=== PATIENT | male | born 1980 | race Two or more races ===

== ENCOUNTER 2019-02-18 13:50 | Emergency (ER) | payer MEDICAID ==
[~2019-02-18] VITALS: Ht 175.3 cm; Wt 88.5 kg
[2019-02-18] MEDS ORDERED: TRUVADA 200 MG1 EAC1 ORAL (13:59)
[2019-02-18] MEDS ORDERED: NKM (13:59)
[2019-02-18 14:12] VITALS: BP 133/68
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
[2019-02-18] MEDS ORDERED: Morphine Sulfate 2mg/ml Inj(IV/IM USE ONLY) IM ONE (14:15)
--- NOTE | 2019-02-18 14:44 | NUR ---
ED Nurse Note:pt. has abrasion on right wrist and multiple bruising on legs
--- NOTE | 2019-02-18 15:09 | NUR ---
ED Nurse Note:pt. had x-rays done
[2019-02-18] MEDS ORDERED: NORCO 5-325 TA1 EACH ORAL (15:14)
[2019-02-18] MEDS ORDERED: IBUPROFEN600 MG ORAL (15:14)
--- NOTE | 2019-02-18 15:36 | Diagnostic Imaging Report ---
EXAM: XR Right Knee, 3 views CLINICAL HISTORY: INJ TECHNIQUE: Three views of the right knee. COMPARISON: No relevant prior studies available. FINDINGS: Bones/joints: No acute fracture. No dislocation. Soft tissues: No radiopaque foreign body IMPRESSION: No fracture or dislocation
--- NOTE | 2019-02-18 15:37 | Diagnostic Imaging Report ---
EXAM: XR Left Clavicle Complete, 2 or More Views CLINICAL HISTORY: INJ TECHNIQUE: Frontal and lordotic views of the left clavicle. COMPARISON: No relevant prior studies available. FINDINGS: Bones/joints: Midshaft fracture of the left clavicle. One full shaft width of inferior displacement. No clear separation of the acromioclavicular joint.. Soft tissues: Unremarkable. IMPRESSION: Midshaft left clavicle fracture.
--- NOTE | 2019-02-18 15:38 | Diagnostic Imaging Report ---
EXAM: XR Chest, 2 Views CLINICAL HISTORY: INJ TECHNIQUE: Frontal and lateral views of the chest. COMPARISON: No relevant prior studies available. FINDINGS: Lungs: Unremarkable. No consolidation. Pleural space: Unremarkable. No pneumothorax. Heart: Unremarkable. No cardiomegaly. Mediastinum: Unremarkable. Bones/joints: Midshaft fracture of the left clavicle. One full shaft width of inferior displacement. No displaced rib fracture. No pneumothorax or hemothorax. IMPRESSION: Midshaft left clavicle fracture.
--- NOTE | 2019-02-18 15:38 | Diagnostic Imaging Report ---
EXAM: XR Left Shoulder Complete, 2 or More Views CLINICAL HISTORY: INJ TECHNIQUE: Two or more views of the left shoulder. COMPARISON: No relevant prior studies available. FINDINGS: Bones/joints: Midshaft fracture of the left clavicle. One full shaft width of inferior displacement. No clear separation of the acromioclavicular joint. Glenohumeral joint is also normally aligned. Soft tissues: Unremarkable. IMPRESSION: Midshaft fracture of the left clavicle.
[2019-02-18 15:45] VITALS: BP 130/67
--- NOTE | 2019-02-18 15:47 | NUR ---
ER DISCHARGE NOTE:arm sling was placed on left arm Patient is cleared to be discharged per ERMD, pt is aox4, on room air, with stable vital signs. pt was given dc and prescription instructions, pt was able to verbalize understanding, pt is able to ambulate with steady gait. pt took all belongings.
== END 2019-02-18 15:45 | disposition home or self-care (01) ==
LOC: EMR 14:34
DX: S42.022A Displaced fracture of shaft of left clavicle, initial encounter for closed fracture (principal); R07.9 Chest pain, unspecified; M25.561 Pain in right knee; V43.52XA Car driver injured in collision with other type car in traffic accident, initial encounter; Y92.9 Unspecified place or not applicable
CPT/HCPCS: 71046; 73000; 73030; 73562; 96372; 99284; J2270